=== PATIENT | female | born 1995 ===

== ENCOUNTER 2018-08-03 15:42 | Outpatient (CLI) | payer OTHER | END 2018-08-03 16:00 | disposition home or self-care (01) | LOC: OFIC 805 15:42 | DX: J03.80 Acute tonsillitis due to other specified organisms (principal) ==

== ENCOUNTER 2018-08-10 10:41 | Outpatient (CLI) | payer OTHER ==
[~2018-08-10] VITALS: Ht 152.4 cm; Wt 59.0 kg
== END 2018-08-10 11:00 | disposition home or self-care (01) ==
LOC: OFIC 805 10:41
DX: J03.80 Acute tonsillitis due to other specified organisms (principal)

== ENCOUNTER 2018-08-13 12:15 | Outpatient (CLI) | payer OTHER ==
[~2018-08-13] VITALS: Ht 152.4 cm; Wt 59.0 kg
== END 2018-08-13 12:30 | disposition home or self-care (01) ==
LOC: OFIC 805 12:15
DX: J03.80 Acute tonsillitis due to other specified organisms (principal); R07.0 Pain in throat; K11.7 Disturbances of salivary secretion

== ENCOUNTER 2018-08-13 14:09 | Inpatient (IN) | payer OTHER ==
[~2018-08-13] VITALS: Ht 157.5 cm; Wt 54.4 kg
== END 2018-08-17 13:44 | disposition home or self-care (01) | DRG 133 ==
LOC: ER 14:09 → MEDI 20:01 → SEC-K 20:01 → MEDI 21:12
PROVIDERS: ADMIT Specialist
PROC: 0C9PXZZ Drainage of Tonsils, External Approach (ICD-10-PCS; principal; 2018-08-13)
PROC: BW2FZZZ Computerized Tomography (CT Scan) of Neck (ICD-10-PCS; 2018-08-13)
DX: J36 Peritonsillar abscess (principal); B37.0 Candidal stomatitis; B95.4 Other streptococcus as the cause of diseases classified elsewhere; E86.0 Dehydration; Z88.0 Allergy status to penicillin

== ENCOUNTER 2018-08-30 12:46 | Emergency (ER) | payer OTHER ==
[~2018-08-30] VITALS: Ht 170.2 cm; Wt 57.2 kg
== END 2018-08-30 15:00 | disposition home or self-care (01) ==
LOC: ER 12:46
DX: J03.80 Acute tonsillitis due to other specified organisms (principal)

== ENCOUNTER 2018-09-07 12:03 | Outpatient (CLI) | payer OTHER ==
[~2018-09-07] VITALS: Ht 152.4 cm; Wt 54.4 kg
== END 2018-09-07 12:20 | disposition home or self-care (01) ==
LOC: OFIC 805 12:03
DX: J03.80 Acute tonsillitis due to other specified organisms (principal); J36 Peritonsillar abscess

== ENCOUNTER 2018-09-21 12:11 | Outpatient (CLI) | payer OTHER ==
[~2018-09-21] VITALS: Ht 152.4 cm; Wt 54.4 kg
== END 2018-09-21 12:25 | disposition home or self-care (01) ==
LOC: OFIC 805 12:11
DX: J03.80 Acute tonsillitis due to other specified organisms (principal); J36 Peritonsillar abscess

== ENCOUNTER 2018-11-16 12:22 | Outpatient (CLI) | payer OTHER ==
[~2018-11-16] VITALS: Ht 152.4 cm; Wt 54.4 kg
== END 2018-11-16 12:40 | disposition home or self-care (01) ==
LOC: OFIC 805 12:22
DX: J03.90 Acute tonsillitis, unspecified (principal); R07.0 Pain in throat; J36 Peritonsillar abscess

== ENCOUNTER 2018-12-24 12:54 | Outpatient (CLI) | payer OTHER | END 2018-12-24 13:00 | disposition home or self-care (01) | LOC: RAD 12:54 | DX: M25.561 Pain in right knee (principal) ==

== ENCOUNTER → 2018-12-24 15:35 | Outpatient (CLI) | payer OTHER | END | disposition home or self-care (01) | LOC: LAB 15:35 | DX: M25.461 Effusion, right knee (principal); M10.9 Gout, unspecified ==

== ENCOUNTER 2019-01-11 10:31 | Outpatient (CLI) | payer OTHER | END 2019-01-11 10:33 | disposition home or self-care (01) | LOC: MRI 10:31 | DX: M25.461 Effusion, right knee (principal); M23.8X1 Other internal derangements of right knee | CPT/HCPCS: 73718 ==